=== PATIENT | female | born 1990 | race Hispanic/Latino ===

== ENCOUNTER 2019-03-24 18:43 | Emergency (ER) | payer SELFPAY | END 2019-03-24 19:55 | disposition home or self-care (01) | LOC: ER 18:43 | DX: R10.13 Epigastric pain (principal) | CPT/HCPCS: 99282 ==

== ENCOUNTER 2024-06-30 08:28 | Emergency (ER) | payer BC ==
[~2024-06-30] VITALS: Ht 154.9 cm; Wt 83.9 kg
[2024-06-30 08:32] VITALS: RESP 17; TEMP 98.4
[2024-06-30] MEDS: KETOROLAC TROMETHAMINE 30 MG/ML VIAL IV STA (09:40)
[2024-06-30 09:54] LABS: BASOPHILS % 0.4 % (0.0-1.0); EOSINOPHILS # (AUTO) 0.2 (0.0-0.4); HEMATOCRIT 40.1 % (34.2-44.1); HEMOGLOBIN 13.6 g/dL (12.0-16.0); LYMPHOCYTES # (AUTO) 2.5 (1.0-3.2); LYMPHOCYTES % 35.3 % (18.0-39.1); MEAN CORPUSCULAR HEMOGLOBIN 29.2 pg (28-32); MEAN CORPUSCULAR HGB CONC 33.9 g/dL (31-35); MEAN CORPUSCULAR VOLUME 86.1 fL (81-99); MONOCYTES # (AUTO) 0.4 (0.2-0.8); MONOCYTES % 5.5 % (4.4-11.3); NEUTROPHILS # (AUTO) 3.9 (2.1-6.9); NEUTROPHILS % 55.7 % (38.7-80.0); PLATELET COUNT 293 x10e3/uL (140-360); RED BLOOD COUNT 4.66 x10e6/uL (3.6-5.1); RED CELL DISTRIBUTION WIDTH 12.7 % (11.7-14.4); WHITE BLOOD COUNT 6.97 x10e3/uL (4.8-10.8)
[2024-06-30 10:16] LABS: ALBUMIN 3.5 g/dL (3.5-5.0); ALBUMIN/GLOBULIN RATIO 0.9 (0.8-2.0); ANION GAP 12.8 mmol/L (8-16); BILIRUBIN,TOTAL 0.3 mg/dL (0.2-1.2); CALCIUM 9.1 mg/dL (8.4-10.2); CREATININE, SERUM 0.74 mg/dL (0.57-1.11); POTASSIUM 3.8 mmol/L (3.5-5.1); TOTAL PROTEIN 7.3 g/dL (6.5-8.1)
[2024-06-30] MEDS ORDERED: NAPROSYN500 MG PO (11:12)
[2024-06-30 11:50] VITALS: PULSE 78; O2SAT 100
== END 2024-06-30 11:55 | disposition home or self-care (01) ==
LOC: ER 08:32
DX: R07.89 Other chest pain (principal)
CPT/HCPCS: 36415; 71045; 80053; 83880; 84484; 85025; 85379; 93005; 99284; J1885